=== PATIENT | female | born 1985 | race Caucasian/White ===

== ENCOUNTER 2018-07-03 07:29 | Emergency (ER) | payer MEDICAID ==
[~2018-07-03] VITALS: Ht 170.2 cm; Wt 81.7 kg
[~2018-07-03 07:29] MED LIST: ACETAMINOPHEN-1 EAC1 PO; BIRTH CONTROL PILLS; FLEXERIL PO; IBUPROFEN 800800 M1 PO; IBUPROFEN 800800 MG PO; KEFLEX500 MG PO; LEVOTHYROXIN0.075 MG PO; MACROBID 100 M100 M1 PO; NAPROSYN500 MG PO; PENICILLIN VK250 MG PO; PENICILLIN VK500 MG PO; PERCOCET 5-3251 EACH PO; PERCOCET PO; TRAMADOL 50 MG50 MG PO; ULTRAM 50MG TAB50 MG PO
[2018-07-03] MEDS ORDERED: SYNTHROID100 MC1 PO (07:41)
[2018-07-03] MEDS ORDERED: SUBOXONE 4 MG-1 EACH PO (07:44)
[2018-07-03 08:17] LABS: ABSOLUTE EOSINOPHILS 0.5 thou/uL (0.0-0.7); ABSOLUTE MONOCYTES 0.5 thou/uL (0.0-1.2); ABSOLUTE NEUTROPHILS 4.4 thou/uL (1.6-8.1); BASOPHILS 0.4 %; EOSINOPHILS 6.8 %; HEMATOCRIT 42.7 % (37.0-47.0); HEMOGLOBIN 14.8 gm/dL (12.0-15.0); LYMPHOCYTES 26.5 %; MCH 31.3 pg (26.0-34.0); MCHC 34.5 g/dL (28.0-37.0); MCV 90.5 fL (80.0-100.0); MONOCYTES 6.9 %; MPV 9.2 fl. (7.2-11.1); NUCLEATED RBCS 0 /100WBC; PLATELET COUNT* 160 thou/uL (150-400); POLYS 59.4 %; RBC 4.72 mil/uL (4.20-5.00); RDW-CV 13.6 % (10.5-14.5); WBC 7.4 thou/uL (4.0-11.0)
[2018-07-03 08:33] LABS: CALCIUM 8.7 mg/dL (8.5-10.1); CREATININE 0.7 mg/dL (0.6-1.3); POTASSIUM 3.9 mmol/L (3.5-5.1)
[2018-07-03 08:34] LABS: ALBUMIN 3.5 g/dL (3.4-5.0); TOTAL BILIRUBIN 0.3 mg/dL (<0.1-1.0); TOTAL PROTEIN 7.4 g/dL (6.4-8.2)
[2018-07-03] MEDS ORDERED: ZOFRAN ODT4 MG DISSOLVE (08:49)
[2018-07-03] MEDS ORDERED: BENTYL 20 MG TA20 M1 PO (08:49)
[2018-07-03] MEDS ORDERED: CLONIDINE0.1 PO (08:49)
[2018-07-03 09:12] VITALS: BP 121/77
== END 2018-07-03 09:13 | disposition home or self-care (01) ==
LOC: M.ERS 07:29
PROVIDERS: Emergency Medicine Emergency Medical Services
DX: F11.23 Opioid dependence with withdrawal (principal); E03.9 Hypothyroidism, unspecified; M13.852 Other specified arthritis, left hip; M13.851 Other specified arthritis, right hip; Z88.1 Allergy status to other antibiotic agents

== ENCOUNTER 2018-08-25 12:48 | Emergency (ER) | payer MEDICAID ==
[~2018-08-25] VITALS: Ht 170.2 cm; Wt 77.0 kg
[~2018-08-25 12:48] MED LIST changes: +BENTYL 20 MG TA20 M1 PO; +CLONIDINE0.1 PO; +SUBOXONE 4 MG-1 EACH PO; +SYNTHROID100 MC1 PO; +ZOFRAN ODT4 MG DISSOLVE
[2018-08-25 13:04] LABS: URINE BILIRUBIN NEGATIVE (Negative); URINE BLOOD NEGATIVE (Negative); URINE CLARITY CLEAR; URINE COLOR YELLOW; URINE GLUCOSE-RANDOM NEGATIVE (Negative); URINE KETONES NEGATIVE (Negative); URINE LEUKOCYTES-REFLEX 1+ (Negative); URINE NITRITE-REFLEX NEGATIVE (Negative); URINE PROTEIN NEGATIVE (Negative)
[2018-08-25 13:12] LABS: BACTERIA-REFLEX 1-9 Few /HPF (None Seen); CASTS None Seen /LPF (None Seen); CRYSTALS None Seen /LPF (None Seen); MUCUS None Seen strn/LPF (None Seen); SQUAMOUS >10 Many /LPF (0-3); URINE RBC 0-2 Rare /HPF (0-2); URINE WBC-REFLEX 0-5 Rare /HPF (0-5)
[2018-08-25] MEDS ORDERED: BACTRIM DS TAB1 EACH PO (13:22)
[2018-08-25 13:40] VITALS: BP 112/81
== END 2018-08-25 13:40 | disposition home or self-care (01) ==
LOC: M.ERS 12:48
PROVIDERS: Nurse Practitioner Family
DX: N39.0 Urinary tract infection, site not specified (principal); E03.9 Hypothyroidism, unspecified; M13.852 Other specified arthritis, left hip; M13.851 Other specified arthritis, right hip; F17.200 Nicotine dependence, unspecified, uncomplicated; Z88.1 Allergy status to other antibiotic agents

== ENCOUNTER 2018-12-31 06:11 | Emergency (ER) | payer MEDICAID ==
[~2018-12-31] VITALS: Ht 172.7 cm; Wt 77.1 kg
[~2018-12-31 06:11] MED LIST changes: +BACTRIM DS TAB1 EACH PO
[2018-12-31] MEDS ORDERED: KEFLEX500 M1 PO (06:41)
[2018-12-31 06:49] VITALS: BP 130/78
== END 2018-12-31 06:50 | disposition home or self-care (01) ==
LOC: M.ERS 06:11
DX: S61.011A Laceration without foreign body of right thumb without damage to nail, initial encounter (principal); L03.011 Cellulitis of right finger; E03.9 Hypothyroidism, unspecified; M13.852 Other specified arthritis, left hip; M13.851 Other specified arthritis, right hip; Z88.1 Allergy status to other antibiotic agents; W25.XXXA Contact with sharp glass, initial encounter; Y93.89 Activity, other specified; Y92.89 Other specified places as the place of occurrence of the external cause; Y99.8 Other external cause status

== ENCOUNTER 2019-01-16 11:08 | Emergency (ER) | payer MEDICAID ==
[~2019-01-16] VITALS: Ht 172.7 cm; Wt 77.7 kg
[~2019-01-16 11:08] MED LIST changes: +KEFLEX500 M1 PO
[2019-01-16 12:04] LABS: URINE BILIRUBIN NEGATIVE (Negative); URINE BLOOD NEGATIVE (Negative); URINE CLARITY CLEAR; URINE COLOR YELLOW; URINE GLUCOSE-RANDOM NEGATIVE (Negative); URINE KETONES NEGATIVE (Negative); URINE LEUKOCYTES-REFLEX NEGATIVE (Negative); URINE NITRITE-REFLEX NEGATIVE (Negative); URINE PROTEIN NEGATIVE (Negative); URINE SPECIFIC GRAVITY 1.015 (1.005-1.030); URINE UROBILINOGEN 0.2 E.U./dl (0.2-1.0)
[2019-01-16 12:14] LABS: ABSOLUTE EOSINOPHILS 0.5 thou/uL (0.0-0.7); ABSOLUTE LYMPHOCYTES 2.3 thou/uL (0.8-5.3); ABSOLUTE MONOCYTES 0.7 thou/uL (0.0-1.2); ABSOLUTE NEUTROPHILS 3.3 thou/uL (1.6-8.1); BASOPHILS 0.6 %; EOSINOPHILS 6.7 %; HEMATOCRIT 43.2 % (37.0-47.0); HEMOGLOBIN 14.7 gm/dL (12.0-15.0); LYMPHOCYTES 33.8 %; MCH 31.2 pg (26.0-34.0); MCV 91.8 fL (80.0-100.0); MONOCYTES 10.8 %; MPV 9.3 fl. (7.2-11.1); NUCLEATED RBCS 0 /100WBC; PLATELET COUNT* 182 thou/uL (150-400); POLYS 48.1 %; RDW-CV 13.8 % (10.5-14.5); WBC 6.8 thou/uL (4.0-11.0)
[2019-01-16 12:22] LABS: CALCIUM 8.8 mg/dL (8.5-10.1); CREATININE 0.6 mg/dL (0.6-1.3); POTASSIUM 4.4 mmol/L (3.5-5.1)
[2019-01-16 12:27] LABS: ALBUMIN 3.5 g/dL (3.4-5.0); TOTAL BILIRUBIN 0.3 mg/dL (<0.1-1.0); TOTAL PROTEIN 7.5 g/dL (6.4-8.2)
[2019-01-16 12:47] VITALS: BP 111/69
== END 2019-01-16 12:48 | disposition home or self-care (01) ==
LOC: M.ERS 11:08
PROVIDERS: Emergency Medicine
DX: R42 Dizziness and giddiness (principal); F17.210 Nicotine dependence, cigarettes, uncomplicated; E03.9 Hypothyroidism, unspecified; R11.2 Nausea with vomiting, unspecified; R35.0 Frequency of micturition; R44.1 Visual hallucinations; Z88.0 Allergy status to penicillin

== ENCOUNTER → 2019-03-14 | Outpatient (CLI) | payer MEDICAID | LOC: M.RAD 10:04 | DX: M54.5 Low back pain (principal); M16.0 Bilateral primary osteoarthritis of hip ==

== ENCOUNTER 2019-03-27 18:29 | Emergency (ER) | payer MEDICAID ==
[~2019-03-27] VITALS: Ht 172.7 cm; Wt 81.7 kg
[2019-03-27 18:51] LABS: URINE BILIRUBIN NEGATIVE (Negative); URINE BLOOD NEGATIVE (Negative); URINE CLARITY CLEAR; URINE COLOR YELLOW; URINE GLUCOSE-RANDOM NEGATIVE (Negative); URINE KETONES NEGATIVE (Negative); URINE LEUKOCYTES-REFLEX TRACE (Negative); URINE NITRITE-REFLEX NEGATIVE (Negative); URINE PROTEIN NEGATIVE (Negative); URINE SPECIFIC GRAVITY 1.015 (1.005-1.030); URINE UROBILINOGEN 0.2 E.U./dl (0.2-1.0)
[2019-03-27 18:54] LABS: BACTERIA-REFLEX None Seen /HPF (None Seen); CASTS None Seen /LPF (None Seen); SQUAMOUS 4-10 Moderate /LPF (0-3); URINE RBC None Seen /HPF (0-2); URINE WBC-REFLEX 0-5 Rare /HPF (0-5)
[2019-03-27 18:55] LABS: CRYSTALS None Seen /LPF (None Seen)
[2019-03-27 18:57] LABS: ABSOLUTE EOSINOPHILS 0.5 thou/uL (0.0-0.7); ABSOLUTE LYMPHOCYTES 2.5 thou/uL (0.8-5.3); ABSOLUTE MONOCYTES 0.8 thou/uL (0.0-1.2); ABSOLUTE NEUTROPHILS 6.8 thou/uL (1.6-8.1); BASOPHILS 0.4 %; EOSINOPHILS 4.6 %; HEMATOCRIT 41.5 % (37.0-47.0); HEMOGLOBIN 14.5 gm/dL (12.0-15.0); LYMPHOCYTES 23.6 %; MCH 31.3 pg (26.0-34.0); MCHC 34.8 g/dL (28.0-37.0); MCV 89.7 fL (80.0-100.0); MONOCYTES 7.8 %; MPV 8.3 fl. (7.2-11.1); NUCLEATED RBCS 0 /100WBC; PLATELET COUNT* 180 thou/uL (150-400); POLYS 63.6 %; RBC 4.63 mil/uL (4.20-5.00); RDW-CV 13.4 % (10.5-14.5); WBC 10.7 thou/uL (4.0-11.0)
[2019-03-27 18:59] LABS: AMP/METHAMP Negative (Negative); BARBITURATES Negative (Negative); BENZODIAZEPINES Negative (Negative); COCAINE Negative (Negative); METHADONE Negative (Negative); OPIATES Negative (Negative); PCP Negative (Negative); THC Negative (Negative)
[2019-03-27 19:04] LABS: CALCIUM 9.1 mg/dL (8.5-10.1); CREATININE 0.6 mg/dL (0.6-1.3); POTASSIUM 3.8 mmol/L (3.5-5.1)
[2019-03-27 19:08] LABS: ALBUMIN 3.6 g/dL (3.4-5.0); TOTAL BILIRUBIN 0.3 mg/dL (<0.1-1.0); TOTAL PROTEIN 7.6 g/dL (6.4-8.2)
[2019-03-27 19:46] VITALS: BP 111/72
== END 2019-03-27 19:50 | disposition left against medical advice (07) ==
LOC: M.ERS 18:29
PROVIDERS: Physician Assistant
DX: F91.9 Conduct disorder, unspecified (principal); R51 Headache; R11.2 Nausea with vomiting, unspecified; E03.9 Hypothyroidism, unspecified; M13.859 Other specified arthritis, unspecified hip; F17.210 Nicotine dependence, cigarettes, uncomplicated; Z88.1 Allergy status to other antibiotic agents; Z79.899 Other long term (current) drug therapy

== ENCOUNTER 2019-05-10 14:11 | Emergency (ER) | payer MEDICAID ==
[~2019-05-10] VITALS: Ht 170.2 cm; Wt 84.8 kg
[2019-05-10] MEDS ORDERED: LEVO-T75 MCG PO (14:33)
[2019-05-10] MEDS ORDERED: SUDAFED 12-HOU120 MG PO (14:35)
[2019-05-10 15:29] LABS: URINE BILIRUBIN NEGATIVE (Negative); URINE BLOOD NEGATIVE (Negative); URINE CLARITY CLEAR; URINE COLOR YELLOW; URINE GLUCOSE-RANDOM NEGATIVE (Negative); URINE KETONES NEGATIVE (Negative); URINE LEUKOCYTES-REFLEX TRACE (Negative); URINE NITRITE-REFLEX NEGATIVE (Negative); URINE PROTEIN NEGATIVE (Negative); URINE UROBILINOGEN 0.2 E.U./dl (0.2-1.0)
[2019-05-10 15:34] LABS: ABSOLUTE BASOPHILS 0.1 thou/uL (0.0-0.2); ABSOLUTE EOSINOPHILS 0.5 thou/uL (0.0-0.7); ABSOLUTE LYMPHOCYTES 3.2 thou/uL (0.8-5.3); ABSOLUTE MONOCYTES 0.7 thou/uL (0.0-1.2); ABSOLUTE NEUTROPHILS 3.7 thou/uL (1.6-8.1); BASOPHILS 0.7 %; EOSINOPHILS 5.9 %; LYMPHOCYTES 39.3 %; MCH 31.1 pg (26.0-34.0); MCHC 34.2 g/dL (28.0-37.0); MCV 90.9 fL (80.0-100.0); MPV 9.1 fl. (7.2-11.1); NUCLEATED RBCS 0 /100WBC; PLATELET COUNT* 171 thou/uL (150-400); POLYS 45.1 %; RBC 4.51 mil/uL (4.20-5.00); RDW-CV 13.5 % (10.5-14.5); WBC 8.2 thou/uL (4.0-11.0)
[2019-05-10 15:36] LABS: AMP/METHAMP Negative (Negative); BARBITURATES Negative (Negative); BENZODIAZEPINES Negative (Negative); COCAINE Negative (Negative); METHADONE Negative (Negative); OPIATES Negative (Negative); PCP Negative (Negative); THC Negative (Negative)
[2019-05-10 15:39] LABS: SQUAMOUS >10 Many /LPF (0-3)
[2019-05-10 15:40] LABS: BACTERIA-REFLEX 1-9 Few /HPF (None Seen); URINE RBC None Seen /HPF (0-2); URINE WBC-REFLEX 0-5 Rare /HPF (0-5)
[2019-05-10 15:41] LABS: CASTS None Seen /LPF (None Seen); CRYSTALS None Seen /LPF (None Seen); MUCUS >6 Heavy strn/LPF (None Seen)
[2019-05-10 15:44] LABS: CALCIUM 9.2 mg/dL (8.5-10.1); CREATININE 0.6 mg/dL (0.6-1.3); POTASSIUM 3.7 mmol/L (3.5-5.1)
[2019-05-10 15:48] LABS: ALBUMIN 3.8 g/dL (3.4-5.0); TOTAL BILIRUBIN 0.3 mg/dL (<0.1-1.0); TOTAL PROTEIN 7.7 g/dL (6.4-8.2)
[2019-05-10 16:36] VITALS: BP 137/66
== END 2019-05-10 16:39 | disposition left against medical advice (07) ==
LOC: M.ERS 14:11
PROVIDERS: Nurse Practitioner Family
DX: H53.143 Visual discomfort, bilateral (principal); H53.8 Other visual disturbances; E03.9 Hypothyroidism, unspecified; M13.859 Other specified arthritis, unspecified hip; F17.210 Nicotine dependence, cigarettes, uncomplicated; Z88.1 Allergy status to other antibiotic agents; Z79.899 Other long term (current) drug therapy

== ENCOUNTER 2019-05-10 20:00 | Emergency (ER) | payer MEDICAID ==
[~2019-05-10] VITALS: Ht 170.2 cm; Wt 85.0 kg
[~2019-05-10 20:00] MED LIST changes: +LEVO-T75 MCG PO; +SUDAFED 12-HOU120 MG PO
[2019-05-10 21:26] VITALS: BP 138/52
== END 2019-05-10 21:29 | disposition left against medical advice (07) ==
LOC: M.ERS 20:00
DX: H53.143 Visual discomfort, bilateral (principal); E03.9 Hypothyroidism, unspecified; M13.859 Other specified arthritis, unspecified hip; F17.210 Nicotine dependence, cigarettes, uncomplicated; Z88.1 Allergy status to other antibiotic agents

== ENCOUNTER 2019-05-13 18:19 | Emergency (ER) | payer MEDICAID ==
[~2019-05-13] VITALS: Ht 172.7 cm; Wt 84.4 kg
[2019-05-13 18:33] VITALS: BP 144/75
[2019-05-13] MEDS ORDERED: SUBOXONE 8 MG-1 EAC3 SUBLING (18:36)
== END 2019-05-13 21:06 | disposition home or self-care (01) ==
LOC: M.ERS 18:19
DX: H53.8 Other visual disturbances (principal); E03.9 Hypothyroidism, unspecified; M13.859 Other specified arthritis, unspecified hip; F17.210 Nicotine dependence, cigarettes, uncomplicated; Z88.1 Allergy status to other antibiotic agents

== ENCOUNTER 2019-05-27 14:30 | Emergency (ER) | payer MEDICAID ==
[~2019-05-27] VITALS: Ht 172.7 cm; Wt 84.5 kg
[~2019-05-27 14:30] MED LIST changes: +SUBOXONE 8 MG-1 EAC3 SUBLING
[2019-05-27 15:13] LABS: URINE BILIRUBIN NEGATIVE (Negative); URINE BLOOD NEGATIVE (Negative); URINE CLARITY CLEAR; URINE COLOR YELLOW; URINE GLUCOSE-RANDOM NEGATIVE (Negative); URINE KETONES NEGATIVE (Negative); URINE LEUKOCYTES-REFLEX TRACE (Negative); URINE NITRITE-REFLEX NEGATIVE (Negative); URINE PROTEIN NEGATIVE (Negative); URINE UROBILINOGEN 0.2 E.U./dl (0.2-1.0)
[2019-05-27 15:20] LABS: MUCUS 4-6 Moderate strn/LPF (None Seen); SQUAMOUS >10 Many /LPF (0-3); URINE WBC-REFLEX 0-5 Rare /HPF (0-5)
[2019-05-27 15:21] LABS: CASTS None Seen /LPF (None Seen); CRYSTALS None Seen /LPF (None Seen); URINE RBC None Seen /HPF (0-2)
[2019-05-27 15:37] VITALS: BP 135/69
== END 2019-05-27 15:38 | disposition home or self-care (01) ==
LOC: M.ERS 14:30
PROVIDERS: Nurse Practitioner Family
DX: N76.0 Acute vaginitis (principal); Z88.1 Allergy status to other antibiotic agents; E03.9 Hypothyroidism, unspecified; M13.859 Other specified arthritis, unspecified hip; F17.210 Nicotine dependence, cigarettes, uncomplicated

== ENCOUNTER 2020-02-16 15:21 | Emergency (ER) | payer MEDICAID ==
[~2020-02-16] VITALS: Ht 172.7 cm; Wt 84.4 kg
[2020-02-16 15:39] VITALS: BP 123/71
[2020-02-16 16:22] LABS: URINE BILIRUBIN NEGATIVE (Negative); URINE BLOOD NEGATIVE (Negative); URINE CLARITY SL CLOUDY; URINE COLOR YELLOW; URINE GLUCOSE-RANDOM NEGATIVE (Negative); URINE KETONES NEGATIVE (Negative); URINE LEUKOCYTES-REFLEX NEGATIVE (Negative); URINE NITRITE-REFLEX NEGATIVE (Negative); URINE PROTEIN NEGATIVE (Negative); URINE UROBILINOGEN 0.2 E.U./dl (0.2-1.0)
[2020-02-16 16:27] LABS: AMP/METHAMP Negative (Negative); BARBITURATES Negative (Negative); BENZODIAZEPINES Negative (Negative); COCAINE Negative (Negative); METHADONE Negative (Negative); OPIATES Negative (Negative); PCP Negative (Negative); THC Negative (Negative)
[2020-02-16] MEDS ORDERED: MEDROLDOSEPACK PO (16:38)
[2020-02-16] MEDS ORDERED: NAPROSYN500 MG PO (16:38)
[2020-02-16 16:43] LABS: AMORPHOUS PHOSPHATES Moderate /LPF (None Seen); CASTS None Seen /LPF (None Seen); MUCUS 0-3 Light strn/LPF (None Seen); SQUAMOUS >10 Many /LPF (0-3)
[2020-02-16 16:44] LABS: BACTERIA-REFLEX 1-9 Few /HPF (None Seen); URINE RBC 0-2 Rare /HPF (0-2); URINE WBC-REFLEX 0-5 Rare /HPF (0-5)
== END 2020-02-16 16:47 | disposition home or self-care (01) ==
LOC: M.ERS 15:21
PROVIDERS: Physician Assistant
DX: M79.652 Pain in left thigh (principal); M54.5 Low back pain; E03.9 Hypothyroidism, unspecified; F17.210 Nicotine dependence, cigarettes, uncomplicated; Z88.1 Allergy status to other antibiotic agents; Z96.653 Presence of artificial knee joint, bilateral; Z79.899 Other long term (current) drug therapy

== ENCOUNTER 2020-06-27 13:03 | Emergency (ER) | payer MEDICAID ==
[~2020-06-27] VITALS: Ht 170.2 cm; Wt 81.7 kg
[~2020-06-27 13:03] MED LIST changes: +LEVO-T50 MCG PO; +MEDROLDOSEPACK PO; +SUBOXONE 12 MG1 EACH PO
[2020-06-27 14:20] VITALS: BP 134/68
== END 2020-06-27 14:21 | disposition home or self-care (01) ==
LOC: M.ERS 13:03
DX: J02.9 Acute pharyngitis, unspecified (principal); E03.9 Hypothyroidism, unspecified; F17.210 Nicotine dependence, cigarettes, uncomplicated; Z20.828 Contact with and (suspected) exposure to other viral communicable diseases; Z76.0 Encounter for issue of repeat prescription; Z32.02 Encounter for pregnancy test, result negative; Z88.1 Allergy status to other antibiotic agents; Z79.899 Other long term (current) drug therapy

== ENCOUNTER 2021-02-14 19:30 | Emergency (ER) | payer MEDICAID ==
[~2021-02-14] VITALS: Ht 170.2 cm; Wt 74.8 kg
[2021-02-14 20:39] LABS: URINE BILIRUBIN NEGATIVE (Negative); URINE BLOOD NEGATIVE (Negative); URINE COLOR YELLOW; URINE GLUCOSE-RANDOM NEGATIVE (Negative); URINE KETONES TRACE (Negative); URINE LEUKOCYTES-REFLEX 1+ (Negative); URINE NITRITE-REFLEX NEGATIVE (Negative); URINE PROTEIN NEGATIVE (Negative); URINE SPECIFIC GRAVITY 1.025 (1.005-1.030); URINE UROBILINOGEN 0.2 E.U./dl (0.2-1.0)
[2021-02-14 20:43] LABS: URINE CLARITY HAZY
[2021-02-14 20:48] LABS: SQUAMOUS >10 Many /LPF (0-3)
[2021-02-14 20:49] LABS: BACTERIA-REFLEX None Seen /HPF (None Seen); CASTS None Seen /LPF (None Seen); CRYSTALS None Seen /LPF (None Seen); URINE RBC None Seen /HPF (0-2)
[2021-02-14 21:00] LABS: AMP/METHAMP POSITIVE (Negative); BARBITURATES Negative (Negative); BENZODIAZEPINES Negative (Negative); COCAINE Negative (Negative); METHADONE Negative (Negative); OPIATES Negative (Negative); PCP Negative (Negative); THC POSITIVE (Negative)
[2021-02-14] MEDS ORDERED: BACTRIM DS TAB1 EACH PO (21:10)
[2021-02-14 21:33] VITALS: BP 132/83
== END 2021-02-14 21:35 | disposition home or self-care (01) ==
LOC: M.ERS 19:30
PROVIDERS: Emergency Medicine
DX: N39.0 Urinary tract infection, site not specified (principal); E28.2 Polycystic ovarian syndrome; M19.90 Unspecified osteoarthritis, unspecified site; E03.9 Hypothyroidism, unspecified; F41.9 Anxiety disorder, unspecified; Z79.899 Other long term (current) drug therapy; Z88.1 Allergy status to other antibiotic agents